=== PATIENT | male | born 1950 | race Caucasian/White ===

== ENCOUNTER 2016-04-27 12:15 | Inpatient (IN) | payer OTHER ==
[~2016-04-27] VITALS: Ht 182.9 cm; Wt 124.3 kg
[2016-04-27 13:25] LABS: Basophils # (auto) 0 uL; Basophils % (auto) 0.4 % (0.0-2.0); Eosinophils # (auto) 0.1 uL; Hematocrit 47.9 % (41.0-53.0); Hemoglobin 15.9 g/dL (13.5-17.5); Lymphocytes # (auto) 3.5 uL; Lymphocytes % (auto) 35.2 % (10.0-50.0); Mean Corpuscular Hemoglobin 31.8 pg (28.0-32.0); Mean Corpuscular Hgb Conc. 33.2 g/dL (32.0-36.0); Mean Corpuscular Volume 95.9 fL (80.0-100.0); Mean Platelet Volume 7.9 fL (7.4-10.4); Monocytes # (auto) 0.8 uL; Monocytes % (auto) 7.5 % (0.0-12.0); Neutrophils # (auto) 5.6 uL; Neutrophils % (auto) 55.9 % (37.0-80.0); Platelet Count (auto) 207 10^3/uL (140-450); Red Cell Distribution Width 12.6 % (11.6-16.0); White Blood Cell 10.1 10^3/uL (4.4-10.8)
[2016-04-27 13:44] LABS: Albumin 3.6 g/dL (3.4-5.0); BUN/Creatinine Ratio 17.1; Bilirubin, Total 0.5 mg/dL (0.2-1.0); Calcium 9.2 mg/dL (8.5-10.1); Magnesium 1.9 mg/dL (1.6-2.6); Potassium 4.7 mmol/L (3.5-5.1); Total Protein 7.5 g/dL (6.4-8.2)
[2016-04-27] MEDS ORDERED: SODIUM CHLORIDE 0.9% 1,000 ML IV ONE (15:31)
[2016-04-27] MEDS ORDERED: CLINDAMYCIN 600MG IV 50 ML IV ONE (15:45)
[2016-04-27] MEDS ORDERED: cefTRIAXone 1GM/50ML D5W 50 ML IV ONE (15:45)
[2016-04-27] MEDS ORDERED: METOPROLOL TARTRATE 25 MG TAB PO ONE (17:15)
[2016-04-27] MEDS ORDERED: FUROSEMIDE 40 MG/4 ML VIAL IV ONE (19:00)
[2016-04-27] MEDS ORDERED: ACETAMINOPHEN 325 MG TAB PO PRN (19:00)
[2016-04-27] MEDS ORDERED: LORazepam 0.5 MG TAB PO PRN (19:00)
[2016-04-27] MEDS ORDERED: MORPHINE SULF INJ 2 MG/ML SYRINGE 1ML IV PRN ×2 (19:00)
[2016-04-27] MEDS ORDERED: DEXTROSE (50%) 50ML SYRG IV PRN (19:00)
[2016-04-27] MEDS ORDERED: ONDANSETRON HCL 4 MG/2 ML VIAL IV PRN (19:00)
[2016-04-27] MEDS ORDERED: ALUM & MAG HYDROX-SIMETH LIQ(MAALOX) 30 ML PO PRN (19:00)
[2016-04-27] MEDS ORDERED: POTASSIUM CHL 10 Meq TABLET PO ONE (19:00)
[2016-04-27] MEDS ORDERED: ZOLPIDEM TARTRATE 5 MG TAB PO PRN (19:00)
[2016-04-27] MEDS ORDERED: NITROGLYCERIN 0.4 MG SL TAB SL PRN ×2 (19:00)
[2016-04-27 20:36] LABS: B-Type Natriuretic Peptide 190.98 pg/mL (0-100); Temperature: 22.7 C (20.0-25.0)
[2016-04-27] MEDS ORDERED: DOCUSATE SOD 100 MG CAP PO ONE (21:30)
[2016-04-27] MEDS ORDERED: DIGOXIN 0.25 MG TAB PO ONE (21:30)
[2016-04-27] MEDS ORDERED: metFORMIN HYDROCHLORIDE 500 MG TAB PO ONE (21:30)
[2016-04-27] MEDS ORDERED: ENALAPRIL MALEATE 10 MG TAB PO ONE (21:30)
[2016-04-27 21:33] LABS: Urine Bilirubin Negative (Negative); Urine Blood TRACE /uL (Negative); Urine Color Yellow (Yellow); Urine Glucose Normal (Normal); Urine Ketone Negative (Negative); Urine Mucus FEW (None Seen); Urine Nitrite Negative (Negative); Urine RBC 1 /hpf (0 - 3); Urine Urobilinogen Normal (Negative)
[2016-04-27] MEDS ORDERED: ATORVASTATIN 20 MG TAB PO SCH (22:00)
[2016-04-27 22:03] LABS: INR 2.63 (0.9-1.15); Prothrombin Time 27.1 sec (9.37-12.3)
[2016-04-27] MEDS: SODIUM CHLOR 0.9% PF (SALINE LOCK) 10ML VIAL IV SCH (22:38)
[2016-04-27] MEDS: ASPirin 81 mg TAB PO SCH (23:00)
[2016-04-27] MEDS: CARVEDILOL 12.5 MG TAB PO SCH (23:01)
[2016-04-27] MEDS: CLINDAMYCIN 300MG IV 50 ML IV SCH (23:01)
[2016-04-27] MEDS: ACCU-CHEK COMFORT CURVE STRIP VI SCH (23:02)
[2016-04-27] MEDS: InsuLIN REG 1unit/0.01ml Soln (100units/ml) SC SCH (23:12)
[2016-04-28] MEDS: CLINDAMYCIN 300MG IV 50 ML IV SCH ×2 (05:59→14:00)
[2016-04-28] MEDS: SODIUM CHLOR 0.9% PF (SALINE LOCK) 10ML VIAL IV SCH ×2 (06:11→14:00)
[2016-04-28] MEDS: ACCU-CHEK COMFORT CURVE STRIP VI SCH ×2 (06:29→11:30)
[2016-04-28] MEDS: InsuLIN REG 1unit/0.01ml Soln (100units/ml) SC SCH ×2 (06:34→11:30)
[2016-04-28] MEDS ORDERED: metFORMIN HYDROCHLORIDE 500 MG TAB PO SCH (07:00)
[2016-04-28] MEDS ORDERED: glipiZIDE 5 MG TAB PO SCH (07:00)
[2016-04-28 08:06] VITALS: BP 117/73
[2016-04-28 08:12] LABS: Partial Thromboplastin Time 28.3 sec (22.64-33.71)
[2016-04-28 08:19] LABS: INR 2.34 (0.9-1.15); Prothrombin Time 24.1 sec (9.37-12.3)
[2016-04-28 08:40] LABS: Basophils # (auto) 0 uL; Basophils % (auto) 0.2 % (0.0-2.0); DEFINITIVE VIEW TRANSMISSION; Eosinophils # (auto) 0.1 uL; Eosinophils % (auto) 1.2 % (0.0-7.0); Hematocrit 42.7 % (41.0-53.0); Hemoglobin 16.5 g/dL (13.5-17.5); Lymphocytes # (auto) 3.9 uL; Lymphocytes % (auto) 33.2 % (10.0-50.0); Mean Corpuscular Hemoglobin 36.6 pg (28.0-32.0); Mean Corpuscular Volume 94.8 fL (80.0-100.0); Mean Platelet Volume 8.9 fL (7.4-10.4); Monocytes # (auto) 0.9 uL; Monocytes % (auto) 7.5 % (0.0-12.0); Neutrophils # (auto) 6.8 uL; Neutrophils % (auto) 57.9 % (37.0-80.0); Platelet Count (auto) 166 10^3/uL (140-450); Red Cell Distribution Width 12.9 % (11.6-16.0); White Blood Cell 11.7 10^3/uL (4.4-10.8)
[2016-04-28 08:55] LABS: Mean Corpuscular Hgb Conc. 38.6 g/dL (32.0-36.0)
[2016-04-28] MEDS ORDERED: cefTRIAXone 1GM/50ML D5W 50 ML IV SCH (09:00)
[2016-04-28] MEDS ORDERED: POTASSIUM CHL 10 Meq TABLET PO SCH (10:00)
[2016-04-28] MEDS ORDERED: ENALAPRIL MALEATE 10 MG TAB PO SCH (10:00)
[2016-04-28] MEDS: CARVEDILOL 12.5 MG TAB PO SCH (10:00)
[2016-04-28] MEDS ORDERED: CLOPIDOGREL BISULFATE 75 MG TAB PO SCH (10:00)
[2016-04-28] MEDS ORDERED: DOCUSATE SOD 100 MG CAP PO SCH (10:00)
[2016-04-28] MEDS ORDERED: FUROSEMIDE 40 MG/4 ML VIAL IV SCH (10:00)
[2016-04-28] MEDS: ASPirin 81 mg TAB PO SCH (10:00)
[2016-04-28] MEDS ORDERED: DIGOXIN 0.25 MG TAB PO SCH (10:00)
[2016-04-28] MEDS ORDERED: amLODIPine BESYLATE 5 MG TAB PO SCH (10:00)
[2016-04-28 10:32] LABS: Albumin 3.6 g/dL (3.4-5.0); BUN/Creatinine Ratio 19.6; Calcium 9.1 mg/dL (8.5-10.1); Magnesium 1.7 mg/dL (1.6-2.6); Potassium 4.2 mmol/L (3.5-5.1); Total Protein 7.5 g/dL (6.4-8.2)
[2016-04-28 11:41] LABS: Platelet Estimate Adequate; Stomatocytes Moderate
[2016-04-28] MEDS ORDERED: WARF3TAB20 PO (12:43)
[2016-04-28] MEDS ORDERED: METF-316 PO (12:43)
[2016-04-28] MEDS ORDERED: ENAL2.5T PO (12:43)
[2016-04-28] MEDS ORDERED: CARV25TA55 PO (12:43)
[2016-04-28] MEDS ORDERED: DIGO50SO2 PO (12:43)
[2016-04-28] MEDS ORDERED: AMLO5TAB2 PO (12:43)
[2016-04-28] MEDS ORDERED: GLIP-115 PO (12:43)
[2016-04-28 13:00] VITALS: BP 142/100
[2016-04-28] MEDS ORDERED: WARFARIN SODIUM 1 MG TAB PO ONE (17:00)
== END 2016-04-28 15:52 | disposition home or self-care (01) | DRG 309 ==
LOC: ER 12:22 → TELE 12:23 → TELE-E-ADS 04-28 07:55 → TELE-EAST 04-28 12:26
PROVIDERS: ADMIT Internal Medicine; ATTEND Internal Medicine
DX: I48.1 Persistent atrial fibrillation (principal); I13.0 Hypertensive heart and chronic kidney disease with heart failure and stage 1 through stage 4 chronic kidney disease, or unspecified chronic kidney disease; D68.69 Other thrombophilia; I50.42 Chronic combined systolic (congestive) and diastolic (congestive) heart failure; I48.92 Unspecified atrial flutter; R07.9 Chest pain, unspecified; E11.22 Type 2 diabetes mellitus with diabetic chronic kidney disease; N18.2 Chronic kidney disease, stage 2 (mild); E66.9 Obesity, unspecified; F17.210 Nicotine dependence, cigarettes, uncomplicated; Z68.37 Body mass index [BMI] 37.0-37.9, adult; Z79.899 Other long term (current) drug therapy
CPT/HCPCS: 36415; 71020; 80053; 80061; 81001; 82962; 83036; 83735; 83880; 84443; 84484; 85025; 85610; 85730; 87040; 93005; 93306; 93970; 96360; J0696; J1815; J3490

== ENCOUNTER 2021-05-14 22:34 | Observation (INO) | payer OTHER ==
[~2021-05-14] VITALS: Ht 182.9 cm; Wt 53.1 kg
[~2021-05-14 22:34] MED LIST: AMLO-489 PO; CARV25TA55 PO; DIGO50SO2 PO; ENAL2.5T7 PO; GLIP5TAB12 PO; METF-372 PO; WARF3TAB20 PO
[2021-05-15 00:11] LABS: Basophils # (auto) 0.1 10 ^3/uL (0-0.2); Basophils % (auto) 0.7 % (0.0-2.0); Eosinophils # (auto) 0.1 10 ^3/uL (0-0.8); Eosinophils % (auto) 1.2 % (0.0-7.0); Hematocrit 40.9 % (41.0-53.0); Hemoglobin 13.2 g/dL (13.5-17.5); Lymphocytes # (auto) 1.5 10 ^3/uL (0.4-5.4); Lymphocytes % (auto) 21.2 % (10.0-50.0); Mean Corpuscular Hemoglobin 30.3 pg (28.0-32.0); Mean Corpuscular Hgb Conc. 32.2 g/dL (32.0-36.0); Mean Corpuscular Volume 94.3 fL (80.0-100.0); Monocytes # (auto) 0.5 10 ^3/uL (0-1.3); Monocytes % (auto) 7.6 % (0.0-12.0); Neutrophils # (auto) 4.9 10 ^3/uL (1.6-8.6); Neutrophils % (auto) 69.3 % (37.0-80.0); Nucleated Red Blood Cells % 0.1 %; Red Blood Cells 4.34 10^6/uL (4.5-5.90); Red Cell Distribution Width 15.1 % (11.8-14.3)
[2021-05-15 00:31] LABS: Potassium 3.8 mmol/L (3.5-5.1)
[2021-05-15 00:37] LABS: Albumin 3.1 g/dL (3.4-5.0); BUN/Creatinine Ratio 23.4; Calcium 8.4 mg/dL (8.5-10.1); Magnesium 2.3 mg/dL (1.6-2.6)
[2021-05-15 00:47] LABS: INR 2.2 (0.9-1.15); Partial Thromboplastin Time 33.7 sec (23.6-33.0)
[2021-05-15 00:53] LABS: Bilirubin, Total 0.5 mg/dL (0.2-1.0)
[2021-05-15] MEDS ORDERED: TORS10TA12 PO (06:47)
[2021-05-15] MEDS ORDERED: LISI-275 PO (06:47)
[2021-05-15] MEDS ORDERED: WARF3TAB22 PO (06:47)
[2021-05-15] MEDS ORDERED: CARV25TA55 PO (06:47)
[2021-05-15] MEDS ORDERED: METOPROLOL TARTRATE 25 MG TAB PO ONE (07:15)
[2021-05-15] MEDS ORDERED: DEXTROSE (50%) 50ML SYRG IV PRN (07:15)
[2021-05-15] MEDS ORDERED: MORPHINE SULFATE INJECTION 2 MG/ML SYRG IV PRN (07:15)
[2021-05-15] MEDS ORDERED: DOCUSATE SOD 100 MG CAP PO PRN (07:15)
[2021-05-15] MEDS ORDERED: dilTIAZem 25 MG/5 ML VIAL IV ONE (07:15)
[2021-05-15] MEDS ORDERED: NITROGLYCERIN 0.4 MG SL TAB SL PRN (07:15)
[2021-05-15] MEDS ORDERED: ONDANSETRON HCL 4 MG/2 ML VIAL IV PRN (07:15)
[2021-05-15] MEDS ORDERED: DIGOXIN (250MCG/ML) 2 ML AMPULE IV ONE (07:30)
[2021-05-15 09:22] LABS: Basophils # (auto) 0.1 10 ^3/uL (0-0.2); Eosinophils # (auto) 0.1 10 ^3/uL (0-0.8); Eosinophils % (auto) 1.3 % (0.0-7.0); Hematocrit 42.2 % (41.0-53.0); Hemoglobin 13.6 g/dL (13.5-17.5); Lymphocytes # (auto) 1.5 10 ^3/uL (0.4-5.4); Lymphocytes % (auto) 25.9 % (10.0-50.0); Mean Corpuscular Hemoglobin 30.6 pg (28.0-32.0); Mean Corpuscular Hgb Conc. 32.3 g/dL (32.0-36.0); Mean Corpuscular Volume 94.7 fL (80.0-100.0); Monocytes # (auto) 0.6 10 ^3/uL (0-1.3); Monocytes % (auto) 9.5 % (0.0-12.0); Neutrophils # (auto) 3.7 10 ^3/uL (1.6-8.6); Neutrophils % (auto) 62.3 % (37.0-80.0); Nucleated Red Blood Cells % 0.1 %; Red Blood Cells 4.45 10^6/uL (4.5-5.90); Red Cell Distribution Width 14.8 % (11.8-14.3)
[2021-05-15 09:42] LABS: BUN/Creatinine Ratio 27.1; Calcium 8.6 mg/dL (8.5-10.1); Potassium 3.9 mmol/L (3.5-5.1)
[2021-05-15] MEDS ORDERED: AMIODARONE HCL 150 MG in D5W 5% 100 ML IV ONE (09:45)
[2021-05-15] MEDS ORDERED: LISINOPRIL 5 MG TAB PO SCH (10:00)
[2021-05-15] MEDS ORDERED: TORSEMIDE 20 MG TAB PO SCH (10:00)
[2021-05-15] MEDS ORDERED: ACCU-CHEK COMFORT CURVE STRIP VI SCH (11:30)
[2021-05-15] MEDS ORDERED: InsuLIN REG 1unit/0.01ml Soln (100units/ml) SC SCH (11:30)
[2021-05-15 14:00] VITALS: BP 140/85
[2021-05-15] MEDS ORDERED: CARVEDILOL 12.5 MG TAB PO SCH (22:00)
== END 2021-05-15 15:04 | disposition home or self-care (01) ==
LOC: EDBD 22:34 → ER 22:37 → OVERFLOW 05-15 07:03
PROVIDERS: ADMIT Hospitalist; ATTEND Hospitalist
DX: S81.811A Laceration without foreign body, right lower leg, initial encounter (principal); Z20.822 Contact with and (suspected) exposure to COVID-19; I13.0 Hypertensive heart and chronic kidney disease with heart failure and stage 1 through stage 4 chronic kidney disease, or unspecified chronic kidney disease; R55 Syncope and collapse; I50.9 Heart failure, unspecified; N18.9 Chronic kidney disease, unspecified; I48.91 Unspecified atrial fibrillation; E11.22 Type 2 diabetes mellitus with diabetic chronic kidney disease; F17.210 Nicotine dependence, cigarettes, uncomplicated; W19.XXXA Unspecified fall, initial encounter; Y92.009 Unspecified place in unspecified non-institutional (private) residence as the place of occurrence of the external cause; Y93.01 Activity, walking, marching and hiking; Z79.01 Long term (current) use of anticoagulants
CPT/HCPCS: 12001; 36415; 70450; 71045; 73560; 80048; 80053; 82962; 83735; 83880; 84443; 84484; 85025; 85610; 85730; 87426; 93005; 93306; 93886; 96365; 96366; 96372; 96375; 99285; G0378; J0282; J1160; J7060; 96374